=== PATIENT | female | born 1985 | race Caucasian/White ===

== ENCOUNTER 2018-11-16 07:19 | Emergency (ER) | payer MEDICAID ==
[~2018-11-16] VITALS: Ht 175.3 cm; Wt 68.5 kg
--- NOTE | 2018-11-16 07:30 | NUR ---
patient came in to the ER c/o body pain, on room air, breathing evenly and unlabored. Ambulatory with steady gait. kept comfortable, will continue to monitor accordingly.
[2018-11-16] MEDS ORDERED: METHOCARBAMOL (500MG) 500 MG TABLET PO ONE (08:00)
[2018-11-16] MEDS ORDERED: ACETAMINOPHEN W/ CODEINE#3 1 EA TABLET PO ONE (08:00)
[2018-11-16] MEDS ORDERED: ACETAMINOPHEN W/ CODEINE#3 1 EA TABLET ONE (08:13)
[2018-11-16 08:14] LABS: BASOPHILS % (AUTO) 0.3 % (0.0-2.0); HEMATOCRIT 34 % (33-45); HEMOGLOBIN 11.7 g/dL (11.5-14.8); LYMPHOCYTES # (AUTO) 1.4 /CMM (0.8-4.8); LYMPHOCYTES % (AUTO) 19.7 % (20.0-44.0); MEAN CORPUSCULAR HGB CONC 35 g/dl (31.0-36.0); MEAN CORPUSCULAR VOLUME 98 fL (82-100); MONOCYTES # (AUTO) 0.4 /CMM (0.1-1.30); MONOCYTES % (AUTO) 5.1 % (2.0-12.0); NEUTROPHILS # (AUTO) 5.3 /CMM (1.8-8.9); NEUTROPHILS % (AUTO) 72.9 % (43.0-81.0); PLATELET COUNT (AUTO) 264 /CMM (150-450); RED BLOOD CELL COUNT(AUTO) 3.45 MIL/uL (4.0-5.2); WHITE BLOOD COUNT (AUTO) 7.3 K/uL (4.3-11.0)
[2018-11-16] MEDS ORDERED: METHOCARBAMOL (500MG) 500 MG TABLET ONE (08:14)
[2018-11-16 08:28] LABS: CALCIUM, SERUM 8.8 mg/dL (8.5-10.1); CREATININE 0.9 mg/dL (0.6-1.3); POTASSIUM 3.4 mmol/L (3.5-5.1)
[2018-11-16 09:15] VITALS: BP 114/68
== END 2018-11-16 09:16 | disposition home or self-care (01) ==
LOC: ER 07:23
DX: M54.2 Cervicalgia (principal); R10.84 Generalized abdominal pain; M79.605 Pain in left leg; M79.604 Pain in right leg; J45.909 Unspecified asthma, uncomplicated; Z60.2 Problems related to living alone
CPT/HCPCS: 36415; 80048-TC; 84703-TC; 85025-TC